=== PATIENT | male | born 1965 | race Caucasian/White ===

== ENCOUNTER → 2018-04-07 | Outpatient (CLI) | payer OTHER ==
[~2018-04-07] MED LIST: MULT-27 PO
--- NOTE | 2018-04-07 10:54 | RADIOLOGY IMAGING REPORT ---
FACILITY: [facility] - [place] PATIENT NAME: Feliciano Bañuelos : 1965 MR: [id number] V: [id number] EXAM DATE: ORDERING PHYSICIAN: SONIA CHU TECHNOLOGIST: Location: [facility] [place] Patient: Feliciano Bañuelos : 1965 Visit/Account:[id number] Date of Sevice: 04/07/2018 Right upper quadrant abdominal sonogram ADDITIONAL PERTINENT HISTORY: Elevated LFTs COMPARISON STUDIES: June 30, 2017 FINDINGS: Liver: Increased echogenicity within the liver compatible with fatty infiltration of the liver. Cont inued mild hepatomegaly. No focal lesion within the liver. Gallbladder: Negative. Common duct: Normal. Measuring 6 mm. Pancreas: Negative. Right kidney: Negative, measuring 11.2 cm in length. Proximal IVC/Aorta: Negative. Ascites: Negative. IMPRESSION: 1. Continued hepatomegaly with fatty infiltration of the liver. 2. No acute process involving the upper abdomen. Report Dictated By: David Mathew MD at 04/07/2018 10:48 AM Report E-Signed By: David Mathew MD at 04/07/2018 10:50 AM WSN:[id number]
== END ==
LOC: US 01:43
PROVIDERS: ATTEND Nurse Practitioner Family
DX: K76.0 Fatty (change of) liver, not elsewhere classified (principal)
CPT/HCPCS: 76705

== ENCOUNTER 2018-05-10 01:09 | Day surgery (SDC) | payer OTHER ==
[2018-05-09 10:58] LABS: INR 0.95
[2018-05-10 10:56] VITALS: BP 138/88
[2018-05-10 11:30] VITALS: BP 127/94
--- NOTE | 2018-05-10 11:37 | RADIOLOGY IMAGING REPORT ---
FACILITY: [facility] - [place] PATIENT NAME: Feliciano Bañuelos : 1965 MR: [id number] V: [id number] EXAM DATE: ORDERING PHYSICIAN: SONIA CHU TECHNOLOGIST: Location: [facility] - [place] Patient: Feliciano Bañuelos : 1965 Visit/Account:[id number] Date of Sevice: 05/10/2018 Ultrasound-guided liver biopsy Indication: Transaminitis Informed consent was obtained from the patient prior to the start of procedure. Risks of bleeding, in fection and damage to adjacent organs were all discussed. Procedure: Following an official timeout documented patient's name and type of procedure the patient was placed supineon the ultrasound table. Ultrasound was performed of the right abdomen and multiple images were saved to the PACS system. Skin overlying the liver was then prepped and draped in usual s terile fashion. Following local anesthesia to the skin and subcutaneous tissues a small incision was made. Through the incision ultrasound guidance was used to direct a 19-gauge coaxial needle into the right hepatic lobe. Multiple core biopsies were obtained. Specimens were placed in formalin for patho logic evaluation. Followup images showed no subcapsular bleeding. No sedation was given Procedural time: 20 minutes Findings: Initial ultrasound images demonstrate a no focal hepatic lesion . Following the biopsy, no capsular hematoma or unexpected abnormality is noted. IMPRESSION: Successful ultrasound-guided liver biopsy. Report Dictated By: Devnedra Diaz MD at 05/10/2018 11:29 AM Report E-Signed By: Devendra Diaz MD at 05/10/2018 11:33 AM WSN:[email or web address]
[2018-05-10 11:56] VITALS: BP 143/80
== END 2018-05-10 12:00 | disposition home or self-care (01) ==
LOC: OR 01:09
PROVIDERS: ATTEND Nurse Practitioner Family
DX: R79.89 Other specified abnormal findings of blood chemistry (principal)
CPT/HCPCS: 36415; 76942; 85049; 85610; 85730; 88305; 88313